=== PATIENT | female | born 1940 | race Caucasian/White ===

== ENCOUNTER → 2018-06-16 | Outpatient (CLI) | payer OTHER ==
[~2018-06-16] VITALS: Ht 163.8 cm; Wt 63.5 kg
[~2018-06-16] MED LIST: ADVIL200 MG PO; BENADRYL25 MG PO; BISACODYL5 MG PO; FERROUS SULFAT325 MG PO; METAMUCIL POWD822 G1 PO; METAMUCIL POWD822 GM PO; MILK OF MAGNESI10 ML PO; OXYCODONE HCL5 MG PO; TYLENOL REGULA325 MG PO; XARELTO10 MG PO
== END | disposition home or self-care (01) ==
LOC: AMB 08:41
DX: Z12.11 Encounter for screening for malignant neoplasm of colon (principal); D12.3 Benign neoplasm of transverse colon; K63.5 Polyp of colon; Z86.010 Personal history of colon polyps; Z80.0 Family history of malignant neoplasm of digestive organs; K64.8 Other hemorrhoids; E78.00 Pure hypercholesterolemia, unspecified; Z80.3 Family history of malignant neoplasm of breast; Z82.49 Family history of ischemic heart disease and other diseases of the circulatory system
CPT/HCPCS: 88305